=== PATIENT | female | born 1965 | race Two or more races ===

== ENCOUNTER 2021-10-26 14:42 | Emergency (ER) | payer SELFPAY ==
[~2021-10-26] VITALS: Ht 160 cm; Wt 69.0 kg
[2021-10-26 14:54] VITALS: BP 146/94
== END 2021-10-26 15:19 | disposition home or self-care (01) ==
LOC: ER 14:51
DX: R46.2 Strange and inexplicable behavior (principal); Z00.00 Encounter for general adult medical examination without abnormal findings; Z98.890 Other specified postprocedural states
CPT/HCPCS: 99283

== ENCOUNTER 2021-11-05 01:29 | Emergency (ER) | payer MEDICARE ==
[~2021-11-05] VITALS: Ht 162.6 cm; Wt 64.0 kg
[2021-11-05 02:13] LABS: BASOPHILS % 0.6 % (0.0-2.0); EOSINOPHILS % 0.9 % (0.0-5.0); HEMATOCRIT. 40.5 % (36.0-48.0); HEMOGLOBIN. 13.4 g/dL (12.0-16.0); LYMPHOCYTES % 29.5 % (20.0-50.0); MEAN CORPUSCULAR HEMOGLOBIN 27.7 pg (28.0-32.0); MEAN PLATELET VOLUME 8.8 fl (7.4-10.4); MONOCYTES % 8.3 % (2.0-8.0); NEUTROPHILS % 60.7 % (40.0-76.0); PLATELET 233 x1000/uL (130-400); RED BLOOD CELL COUNT 4.82 mill/uL (4.2-5.4); RED CELL DISTRIBUTION WIDTH 12.8 % (11.6-14.6)
[2021-11-05 02:25] LABS: CHLORIDE 109 mEq/L (98-107)
[2021-11-05 02:33] LABS: ETHANOL BLOOD < 10 mg/dL
[2021-11-05] MEDS ORDERED: HALOPERIDOL LACTATE 5MG/ML VIAL IM ONE (02:45)
[2021-11-05 06:04] LABS: CLARITY URINE CLEAR (CLEAR); COLOR URINE YELLOW (YELLOW); KETONES URINE NEGATIVE (NEGATIVE); LEUKOCYTE ESTERASE URINE NEGATIVE (NEGATIVE); NITRITE URINE NEGATIVE (NEGATIVE); OCCULT BLOOD URINE NEGATIVE (NEGATIVE); PROTEIN URINE NEGATIVE (NEGATIVE); SPECIFIC GRAVITY URINE 1.016 (1.005-1.030); UROBILINOGEN URINE 0.2 E.U./dL (0.2-1.0)
[2021-11-05 06:15] LABS: *AMPHETAMINES SCREEN URINE NEGATIVE (NEGATIVE); *BARBITURATES SCREEN URINE NEGATIVE (NEGATIVE); *BENZODIAZEPINES SCREEN URINE NEGATIVE (NEGATIVE); *COCAINE SCREEN URINE NEGATIVE (NEGATIVE); CANNABINOID URINE SCREEN NEGATIVE (NEGATIVE); METHADONE URINE SCREEN NEGATIVE (NEGATIVE); OPIATES URINE SCREEN NEGATIVE (NEGATIVE); PHENCYCLIDINE URINE SCREEN NEGATIVE (NEGATIVE)
[2021-11-05] MEDS: OLANZAPINE 5MG TABLET PO SCH ×2 (15:54→17:00)
[2021-11-05] MEDS: CITALOPRAM HYDROBROMIDE 10MG TABLET PO SCH (15:54)
[2021-11-06] MEDS: CITALOPRAM HYDROBROMIDE 10MG TABLET PO SCH (09:15)
[2021-11-06] MEDS: OLANZAPINE 5MG TABLET PO SCH (09:15)
[2021-11-06 10:25] VITALS: BP 133/79
== END 2021-11-06 10:51 ==
LOC: ER 01:29
DX: F25.9 Schizoaffective disorder, unspecified (principal); R26.9 Unspecified abnormalities of gait and mobility; F22 Delusional disorders; F10.10 Alcohol abuse, uncomplicated; Y90.0 Blood alcohol level of less than 20 mg/100 ml; Z75.1 Person awaiting admission to adequate facility elsewhere; Z20.822 Contact with and (suspected) exposure to COVID-19
CPT/HCPCS: 36415; 80053; 80305; 80307; 80320; 80329; 81003; 85025; 96372; 99285; C9803; J1630; U0003; U0005; G0480